=== PATIENT | female | born 1980 | race Caucasian/White ===

== ENCOUNTER 2018-12-06 13:10 | Emergency (ER) | payer BC ==
[2016-04-01 13:42] VITALS: BMI 41.3
[~2018-12-06 13:10] MED LIST: ACE3 PO; ACE500 PO; AZI250 PO; Benzocaine 60 ML TP; CEPH-13 PO; DOCU240C67 PO; FERR-53 PO; GUAI480S48 PO; HYDR-653 PO; IBUP200C72 PO; IBUP800T37 PO; Lanolin TP; MEC25 PO; PREN-127 PO; TUCKS TOP; [UNRECOGNIZED DRUG - CODE] PO; [UNRECOGNIZED DRUG - OTHER]
[2018-12-06] MEDS ORDERED: OXYMETAZOLINE SPRAY 15 ML BTL ENA SCH (13:40)
--- NOTE | 2018-12-06 14:32 | ER Report ---
History and Physical Time Seen By MD: 13:10 Hx. of Stated Complaint: NOSEBLEED THAT STARTED ABOUT 45 MINUTES [employer]. BLEEDING IS CONTROLLED AT THIS TIME HPI/ROS 38-year-old female who presents with nosebleed that started approximately 45 minutes prior to arrival. Patient states that she has had several nosebleeds in the past but seemed to be slightly more frequently recently. No other bleeding issues in the past or family history of clotting disorders. Bleeding has mostly subsided. No trauma. A complete review of systems was performed and was negative except as noted in the history of present illness Allergies: Coded Allergies: latex (Verified Allergy, Mild, 01/28/16) Home Meds Active Scripts [Lanolin] 7 GM OINT No Conflict Check, 0 GM TP PRN PRN for DISCOMFORT FOR NURSING MOTHERS, TUBE Prov:LAKSHMI GÓMEZ MD 04/03/16 Glycerin/[place] (PREPARATION H) 1 Pkg Pad, 0 PKG TOP PRN PRN for PAIN for 10 Days, PAD Prov:LAKSHMI GÓMEZ MD 04/03/16 Ferrous Sulfate (FERROUS SULFATE) 325 Mg Tablet, 325 MG PO DAILY for 60 Days, TAB Prov:LAKSHMI GÓMEZ MD 04/03/16 Docusate Calcium (DOCUSATE CALCIUM) 240 Mg Capsule, 240 MG PO BID for 10 Days, CAPSULE Prov:LAKSHMI GÓMEZ MD 04/03/16 [Benzocaine] 60 ML AERS No Conflict Check, 0 ML TP PRN PRN for PAIN for 10 Days Prov:LAKSHMI GÓMEZ MD 04/03/16 Ibuprofen (IBUPROFEN) 800 Mg Tablet, 800 MG PO Q8H, #20 TAB 0 Refills Prov:BRITTANY GRECO DO 04/02/16 Acetaminophen/Codeine (TYLENOL #3 (OR EQUIV)) 1 Ea Tab, 1-2 EACH PO Q4H PRN for PAIN, #20 TAB 0 Refills Prov:BRITTANY GRECO DO 04/02/16 Reported Medications Vits W-Ca,Fe,Fa(<1MG) ( VITAMINS) 1 Each Tablet, 1 EACH PO DAILY, TAB 03/23/16 Reviewed Nurses Notes: Yes Old Medical Records Reviewed: Yes Hx Smoking: Yes Smoking Status: Former Smoker Exposure to Second Hand Smoke?: Yes Hx Substance Use Disorder: No Hx Alcohol Use: Yes (OCC) Constitutional Vital Sign - Last 24 Hours 12/06/18 13:13 Temp 98.2 Pulse 74 Resp 20 B/P (MAP) 121/80 Pulse Ox 96 O2 Delivery Room Air Physical Exam General Appearance: No acute distress Eyes: Pupils equal and round no injection. Nose: Large clot in the right nare; and no appreciable active bleeding in the left nare. Scant blood in the posterior oropharynx without appreciable clot. No palatal petechiae. Respiratory: Chest is non tender, lungs are clear to auscultation. Cardiac: regular rate and rhythm Medical Decision Making ED Course/Re-evaluation ED Course 38-year-old female who presents 45 minutes after nosebleed. Patient is medically stable and bleeding is controlled at this time. There is a large clot in the right naris and we had her blow her nose and then instilled Afrin and clamp for 10 minutes. On removal of the clamp and on inspection there is no active bleeding. There did appear to be some friable mucosa in the right near which was likely the source of her bleeding. We discussed controlling bleeding using this method at home if it recurs and if she is unable to control bleeding or if it persists she needs to return for reevaluation. Patient will otherwise follow up with her primary care physician. Decision to Disposition Date: Dec 06, 2018 Decision to Disposition Time: 14:20 Depart Departure Latest Vital Signs Vital Signs Date Time Temp Pulse Resp B/P (MAP) Pulse Ox O2 Delivery O2 Flow Rate FiO2 12/06/18 13:13 98.2 74 20 121/80 96 Room Air Impression: Primary Impression: Epistaxis Condition: Improved Disposition: HOME OR SELF-CARE Referrals: ALEX ORNELAS (PCP) Patient Instructions: Nosebleed (ED) Additional Instructions: If you have a rebleed, blowing her nose to remove all clots and then spray large amount of the Afrin in each nostril and clamp for 10 minutes. If bleeding is continuous through this or it does not stop after this or returns quickly thereafter, return to the emergency department for reevaluation PASCALE PERRY MD Dec 06, 2018 14:32
[2018-12-06 14:38] VITALS: BP 125/72
== END 2018-12-06 14:39 | disposition home or self-care (01) ==
LOC: ER 13:43
DX: R04.0 Epistaxis (principal)
CPT/HCPCS: 99282